=== PATIENT | male | born 2000 | race Two or more races ===

== ENCOUNTER 2019-02-10 09:31 | Emergency (ER) | payer MEDICAID ==
[2019-02-10] MEDS ORDERED: Lidocaine 1% 30 ML SDV INJECT ONE (11:08)
--- NOTE | 2019-02-10 12:43 | EDM.PDOC ---
Scribed by Dahlia Davis 02/10/19 1130 for Makayla Lund NP ED HPI GENERAL MEDICAL PROBLEM - General Chief Complaint: Genitourinary Problem Stated Complaint: MALE PROBLEM Time Seen by Provider: 02/10/19 11:03 Source of Information: Reports: Patient, RN, RN Notes Reviewed History Limitations: Reports: Language Barrier - History of Present Illness INITIAL COMMENTS - FREE TEXT/NARRATIVE: Patient presents to ER with complaints of a "pimple" to private area. He noticed this 3 days ago. He has a history of sores in the past. No fever, chills , nausea, vomiting or diarrhea. 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 Onset Date: 02/07/19 Duration: Resolved Prior to Arrival Quality: Reports: Ache Severity: Moderate Improves with: Reports: None Worsens with: Reports: None Associated Symptoms: Reports: No Other Symptoms Penis Pain Score (Numeric/FACES): 8 - Related Data Allergies Allergy/AdvReac Type Severity Reaction Status Date / Time No Known Allergies Allergy Verified 02/10/19 09:39 Home Meds: Home Meds . [No Known Home Meds] 02/10/19 [History] Past Medical History - Past Health History Medical/Surgical History: Denies Medical/Surgical History Social & Family History - Tobacco Use Smoking Status *Q: Never Smoker Second Hand Smoke Exposure: No - Recreational Drug Use Recreational Drug Use: No ED ROS GENERAL - Review of Systems Review Of Systems: ROS reveals no pertinent complaints other than HPI. ED EXAM, RENAL/ - Physical Exam Exam: See Below Exam Limited By: Language Barrier General Appearance: Alert, WD/WN, No Apparent Distress Eye Exam: Bilateral Eye: EOMI, Normal Inspection, PERRL Ears: Normal External Exam, Normal Canal, Hearing Grossly Normal, Normal TMs Nose: Normal Inspection, Normal Mucosa, No Blood Throat/Mouth: Normal Inspection, Normal Lips, Normal Teeth, Normal Gums, Normal Oropharynx, Normal Voice, No Airway Compromise Head: Atraumatic, Normocephalic Neck: Normal Inspection, Supple, Non-Tender, Full Range of Motion Respiratory/Chest: No Respiratory Distress, Lungs Clear, Normal Breath Sounds, No Accessory Muscle Use, Chest Non-Tender Cardiovascular: Normal Peripheral Pulses, Regular Rate, Rhythm, No Edema, No Gallop, No JVD, No Murmur, No Rub GI/Abdominal: Normal Bowel Sounds, Soft, Non-Tender, No Organomegaly, No Distention, No Abnormal Bruit, No Mass (Male) Exam: Deferred Rectal (Males) Exam: Deferred Back Exam: Normal Inspection, Full Range of Motion, NT Extremities: Normal Inspection, Normal Range of Motion, Non-Tender, Normal Capillary Refill, No Pedal Edema Neurological: Alert, Oriented, CN II-XII Intact, Normal Cognition, Normal Gait, Normal Reflexes, No Motor/Sensory Deficits Psychiatric: Normal Affect, Normal Mood Skin Exam: Other (abscess with erythema and induration right inguinal area. ) Lymphatic: No Adenopathy ED PROCEDURES - Additional/Other Procedure(s) Procedure(s) (Free Text): 1cm x 1cm abscess to the right lower abdomen (?ingrown hair). Injected with 2mL Lidocaine 1%. Lanced with 18 g needle, moderate amount of bloody, yellow drainage. Covered with telfa. Course - Vital Signs Last Recorded V/S: Last Vital Signs Temp 97.2 F 02/10/19 09:36 Pulse 89 02/10/19 09:36 Resp 18 02/10/19 09:36 BP 133/84 02/10/19 09:36 Pulse Ox 99 02/10/19 09:36 - Orders/Labs/Meds Orders: Active Orders 24 hr Category Date Time Status CULTURE WOUND [RM] Stat Lab 02/10/19 11:30 Ordered Meds: Medications Discontinued Medications Generic Name Dose Route Start Last Admin Trade Name Flora PRN Reason Stop Dose Admin Lidocaine HCl 30 ml 02/10/19 11:08 02/10/19 11:16 Xylocaine-Mpf 1% INJECT 02/10/19 11:09 30 ml ONETIME ONE Administration Departure - Departure Time of Disposition: 11:29 Disposition: Home, Self-Care 01 Condition: Fair Clinical Impression: Abscess - Discharge Information *PRESCRIPTION DRUG MONITORING PROGRAM REVIEWED*: No *COPY OF PRESCRIPTION DRUG MONITORING REPORT IN PATIENT LEO: No Instructions: Skin Abscess, [id number] Forms: ED Department Discharge Additional Instructions: RX: Bactrim Keep are clean and dry Follow up with primary care if no improvement. - My Orders Last 24 Hours: My Active Orders 02/10/19 11:30 CULTURE WOUND [RM] Stat - Assessment/Plan Last 24 Hours: My Active Orders 02/10/19 11:30 CULTURE WOUND [RM] Stat I have read and agree with the documentation that has been completed regarding this visit. By signing this record, I attest that the documentation was completed in my physical presence and is an accurate record of the encounter.
== END 2019-02-10 11:37 | disposition home or self-care (01) ==
LOC: DL.ED 09:31
DX: L02.214 Cutaneous abscess of groin (principal)
CPT/HCPCS: 10060; 87070; 87077; 87186; 99283; J2001